=== PATIENT | female | born 1995 | race African-American/Black ===

== ENCOUNTER 2019-01-18 12:54 | Observation (INO) ==
[2019-01-18] MEDS ORDERED: KETOROLAC 30 MG/1 ML VIAL IV STA (13:19)
[2019-01-18] MEDS ORDERED: CLINDAMYCIN INJ 900 MG in PREMIX 1 EACH IV STA (13:19)
[2019-01-18 14:09] LABS: Basophils # 0.1 10*3/uL (0.0-0.2); Basophils % 0.3 % (0.0-0.8); Eosinophils % 0.1 % (0.00-10.9); Hematocrit 38.6 VOL% (35.7-47.0); Hemoglobin 12.8 GM/DL (12.0-16.0); Immature Granulocytes % 0.5 %; Immature Granulocytes Absolute 0.07 #; Lymphocytes # 1.6 10*3/uL (1.4-4.0); Lymphocytes % 10.2 % (21.3-54.2); Mean Corpuscular HGB Conc 33.2 GM/DL (32-36); Mean Corpuscular Volume 88.5 FL (87-102); Mean Platelet Volume 10.1 FL (9.6-12.0); Monocytes % 6.2 % (1.7-12.7); Neutrophils % 82.7 % (38.7-73.9); Platelet Count 299 T/CUMM (130-400); Red Blood Count 4.36 MC/CUMM (3.8-5.5); Red Cell Distribution Width 12.5 % (9.3-17.3); White Blood Count 15.2 T/CUMM (4-12)
[2019-01-18 14:19] LABS: INR 0.9; PT Patient Result 10.3 SECS (9.6-12.2); Partial Thromboplastin Time 25.9 SECS (20.8-36.0)
[2019-01-18 14:36] LABS: Albumin 3.7 G/DL (3.4-5.0); Bilirubin,Total 0.7 MG/DL (0.2-1.0); Calcium 9.6 MG/DL (8.5-10.1); Osmolality,Calculated 273.7 MOS/KG (273-304); Total Protein 8.8 G/DL (6.4-8.3)
[2019-01-18] MEDS ORDERED: ONDANSETRON 4 MG/2 ML VIAL IV PRN (15:28)
[2019-01-18] MEDS ORDERED: MEPERIDINE 25 MG/1 ML VIAL IV PRN (15:28)
[2019-01-18] MEDS ORDERED: SODIUM CHLORIDE 0.9% 1,000 ML IV SCH (15:30)
[2019-01-18] MEDS: CLINDAMYCIN INJ 900 MG in PREMIX 1 EACH IV SCH (22:04)
[2019-01-19] MEDS: CLINDAMYCIN INJ 900 MG in PREMIX 1 EACH IV SCH ×2 (06:30→15:22)
[2019-01-19] MEDS ORDERED: KETOROLAC 30 MG/1 ML VIAL ONE (09:52)
[2019-01-19] MEDS ORDERED: fentaNYL 100 MCG/2 ML VIAL ONE (09:52)
[2019-01-19] MEDS ORDERED: MIDAZOLAM 2 MG/2 ML VIAL ONE (09:52)
[2019-01-19] MEDS ORDERED: PROPOFOL 200 MG/20 ML VIAL IV ONE (09:52)
[2019-01-19] MEDS ORDERED: ONDANSETRON 4 MG/2 ML VIAL ONE (09:52)
[2019-01-19] MEDS ORDERED: SEVOFLURANE 1 UNIT/15 MINUTE INH ONE (09:52)
[2019-01-19] MEDS ORDERED: LIDOCAINE 2% 5 ML VIAL ONE (09:52)
[2019-01-19 12:48] VITALS: BP 115/79
== END 2019-01-19 16:39 | disposition home or self-care (01) ==
LOC: N.ED 12:54 → N.EDINP 12:54 → N.3E 15:45
PROVIDERS: ADMIT Surgery; ATTEND Surgery